=== PATIENT | female | born 1950 | race Caucasian/White ===

== ENCOUNTER → 2019-05-18 | Outpatient (CLI) | payer MEDICARE, OTHER ==
[~2019-05-18] MED LIST: CARBIDOPA-LEVO1 EAC2 PO; CO Q-10100 MG PO; COD LIVER OIL1 EAC4 PO; FLEXERIL PO; MILK OF MA2400 MG/10 PO; NORCO 5-325 TA1 EACH PO; OS-CAL 500+D C1 EACH PO; PROBIOTIC1 EAC2 PO; SUPER B COMPLE150 MG PO
== END ==
LOC: M.RAD 05-05 11:00
DX: Z12.31 Encounter for screening mammogram for malignant neoplasm of breast (principal); M85.88 Other specified disorders of bone density and structure, other site

== ENCOUNTER → 2021-06-27 | Outpatient (CLI) | payer MEDICARE, OTHER | LOC: M.RAD 06-20 14:52 | DX: Z12.31 Encounter for screening mammogram for malignant neoplasm of breast (principal); M85.88 Other specified disorders of bone density and structure, other site; M81.0 Age-related osteoporosis without current pathological fracture; Z78.0 Asymptomatic menopausal state ==

== ENCOUNTER → 2021-07-05 | Outpatient (CLI) | payer MEDICARE, OTHER | LOC: M.RAD 06-28 14:53 | DX: N60.01 Solitary cyst of right breast (principal) ==